=== PATIENT | female | born 1935 | race Caucasian/White ===

== ENCOUNTER → 2020-09-04 | Outpatient (CLI) | payer MEDICARE, BC | LOC: EMI 09-03 14:00 | DX: R26.81 Unsteadiness on feet (principal); R90.82 White matter disease, unspecified | CPT/HCPCS: 70553; A9577 ==

== ENCOUNTER → 2020-10-05 | Outpatient (CLI) | payer MEDICARE, BC | LOC: CT 11:29 | DX: I65.29 Occlusion and stenosis of unspecified carotid artery (principal); J43.2 Centrilobular emphysema | CPT/HCPCS: 36415; 70496; 70498; 82565; Q9967 ==

== ENCOUNTER 2021-09-07 21:17 | Emergency (ER) | payer MEDICARE, BC | END 2021-09-08 00:05 | disposition home or self-care (01) | LOC: ER1 21:17 | DX: S80.12XA Contusion of left lower leg, initial encounter (principal); I10 Essential (primary) hypertension; W22.8XXA Striking against or struck by other objects, initial encounter | CPT/HCPCS: 99283 ==